=== PATIENT | female | born 1995 | race Two or more races ===

== ENCOUNTER 2023-02-27 15:12 | Emergency (ER) | payer OTHER ==
[~2023-02-27] VITALS: Ht 170.2 cm; Wt 122.5 kg
== END 2023-02-27 18:53 | disposition home or self-care (01) ==
LOC: ER 15:13
DX: M54.2 Cervicalgia (principal); R25.2 Cramp and spasm

== ENCOUNTER 2023-12-17 17:24 | Emergency (ER) | payer OTHER ==
[~2023-12-17] VITALS: Ht 170.2 cm; Wt 122.5 kg
[~2023-12-17 17:24] MED LIST: BACTRIM DS TAB1 EACH PO
[2023-12-17] MEDS ORDERED: PYRIDIUM DS200 MG (17:59)
[2023-12-17] MEDS ORDERED: MACROBID 100 M100 MG (17:59)
[2023-12-17] MEDS ORDERED: AZOR 5-20 MG T1 EACH (18:00)
[2023-12-17] MEDS ORDERED: ANTIFUNGAL113 GM (18:00)
[2023-12-17] MEDS ORDERED: PROBIOTIC1 EAC4 (18:00)
[2023-12-17 20:43] LABS: PH,URINE 6.5 (5.0-8.0); URINE APPEARANCE Clear; URINE BILIRRUBIN Negative (NEGATIVE); URINE BLOOD Negative; URINE COLOR Yellow; URINE GLUCOSE Negative (NEGATIVE); URINE LEUKOCYTE Trace; URINE NITRATE Negative; URINE PROTEIN Negative (NEGATIVE); URINE UROBILINOGEN 0.2 E.U./dl
[2023-12-17 20:46] LABS: URINE BACTERIA 575.8 uL (0.0-1933); URINE EPITHELIAL CELLS 24.4 uL (0.0-38.8); URINE RBC 8.9 uL (0.0-20.8); URINE WBC 7.4 uL (0.0-23.2)
== END 2023-12-17 22:04 | disposition home or self-care (01) ==
LOC: ER 17:25
PROVIDERS: Emergency Medicine
DX: N34.2 Other urethritis (principal)

== ENCOUNTER 2024-04-03 15:04 | Emergency (ER) | payer OTHER ==
[~2024-04-03] VITALS: Ht 170.2 cm; Wt 127.0 kg
[~2024-04-03 15:04] MED LIST changes: +ANTIFUNGAL113 GM; +AZOR 5-20 MG T1 EACH; +MACROBID 100 M100 MG; +PROBIOTIC1 EAC4; +PYRIDIUM DS200 MG
[2024-04-03 16:49] LABS: HEMATOCRIT 42.3 % (36.0-45.00); HEMOGLOBIN 13.8 g/dL (12.0-15.00); MEAN CELL VOLUME 77.9 fL (80.00-100.00); MEAN CORPUSCULAR HEMOGLOBIN 25.4 pg (27.00-32.0); MEAN CORPUSCULAR HGB CONC 32.6 g/dl (32.0-36.0); PLATELET COUNT 270 K/uL (150-450); RED BLOOD COUNT 5.44 M/uL (4.00-6.00); RED CELL DISTRIBUTION WIDTH 16.4 % (11.5-14.5)
[2024-04-03 17:31] LABS: ALBUMIN 4.8 gm/dL (3.4-5.0); ALKALINE PHOSPHATASE 108 U/L (50-136); ALT/SGPT 19 U/L (12-78); ANION GAP 14 (10.0-20.0); AST/SGOT 12 U/L (15-37); BILIRUBIN TOTAL 0.61 mg/dL (0.3-1.2); BLOOD UREA NITROGEN 10 mg/dL (7-18); BUN CREA RATIO 12 (7.0-25.0); CALCIUM 9.8 mg/dL (8.5-10.1); CARBON DIOXIDE 23 mEq/L (21-32); CHLORIDE 107 mmol/L (98-107); CREATININE SERUM 0.83 mg/dL (0.55-1.02); GLUCOSE FASTING 106 mg/dL (65-100); OSMOLALITY SERUM 279 MOSM/KG (275-295); POTASSIUM 4.08 mEq/L (3.5-5.1); SODIUM 140 mmol/L (136-145); TOTAL PROTEIN 8.8 gm/dL (6.4-8.2)
[2024-04-03 17:41] LABS: HCG QUANTITATIVE < 1 mUI/mL (1-3)
[2024-04-03 17:53] LABS: URINE APPEARANCE Clear; URINE BILIRRUBIN Negative (NEGATIVE); URINE BLOOD Negative; URINE COLOR Yellow; URINE GLUCOSE Negative (NEGATIVE); URINE KETONE 15 (NEGATIVE); URINE LEUKOCYTE Negative; URINE NITRATE Negative; URINE PROTEIN Negative (NEGATIVE); URINE UROBILINOGEN 0.2 E.U./dl
[2024-04-03 17:58] LABS: URINE BACTERIA 425.8 uL (0.0-1933); URINE EPITHELIAL CELLS 27.7 uL (0.0-38.8); URINE RBC 17.2 uL (0.0-20.8)
== END 2024-04-03 19:34 | disposition home or self-care (01) ==
LOC: ER 15:06
PROVIDERS: General Practice
DX: F41.9 Anxiety disorder, unspecified (principal)